=== PATIENT | male | born 1965 | race Caucasian/White ===

== ENCOUNTER 2023-12-25 18:11 | Emergency (ER) | payer BC, MEDICAID ==
[~2023-12-25] VITALS: Ht 175.3 cm; Wt 72.6 kg
--- NOTE | 2023-12-25 18:20 | NUR ---
LUCIANA DE102 "Binge drinking x7days Brother found him in the park c/o pain in chest area NSR"
--- NOTE | 2023-12-25 19:13 | NUR ---
Xray at bedside
[2023-12-25 19:15] LABS: BASOPHILS % (AUTO) 0.9 % (0.0-2.0); EOSINOPHILS % (AUTO) 0.9 % (0.0-6.0); HEMATOCRIT 38 % (39-51); HEMOGLOBIN 12.8 g/dL (13.5-17.5); LYMPHOCYTES # (AUTO) 1.3 K/uL (0.8-4.8); LYMPHOCYTES % (AUTO) 31.5 % (20.0-44.0); MEAN CORPUSCULAR HEMOGLOBIN 33 PG (26.0-33.0); MEAN CORPUSCULAR HGB CONC 34 g/dl (31.0-36.0); MEAN CORPUSCULAR VOLUME 97 fL (80-96); MONOCYTES # (AUTO) 0.5 K/uL (0.1-1.30); MONOCYTES % (AUTO) 12.6 % (2.0-12.0); NEUTROPHILS # (AUTO) 2.2 K/uL (1.8-8.9); NEUTROPHILS % (AUTO) 54.1 % (43.0-81.0); PLATELET COUNT (AUTO) 114 K/uL (150-450); RED BLOOD CELL COUNT(AUTO) 3.91 MIL/uL (4.5-6.0); WHITE BLOOD COUNT (AUTO) 4.1 K/uL (4.3-11.0)
[2023-12-25] MEDS ORDERED: FOLIC ACID 1 MG TABLET ONE (19:16)
[2023-12-25] MEDS ORDERED: THIAMINE HCL 100 MG TABLET ONE ×2 (19:17)
[2023-12-25 19:24] LABS: CALCIUM, SERUM 8.3 mg/dL (8.5-10.1); CARBON DIOXIDE 27 mmol/L (21-32); CHLORIDE 104 mmol/L (98-107); CREATININE 0.5 mg/dL (0.6-1.3); GLUCOSE 91 mg/dL (74-106); POTASSIUM 3.6 mmol/L (3.5-5.1); SODIUM SERUM 144 mmol/L (136-145); UREA NITROGEN, BLOOD 9 mg/dL (7-18)
[2023-12-25] MEDS: FOLIC ACID 1 MG TABLET PO ONE (19:35)
[2023-12-25 19:36] LABS: NT-PRO BNP 30 pg/mL (0-125)
[2023-12-25] MEDS: THIAMINE HCL 100 MG TABLET PO ONE ×2 (19:46)
[2023-12-25] MEDS ORDERED: CHLO25CA22 PO (20:36)
[2023-12-25] MEDS ORDERED: ZOLP5TAB2 PO (20:36)
[2023-12-25] MEDS ORDERED: THIA100T88 PO (20:36)
--- NOTE | 2023-12-25 20:51 | NUR ---
Patient discharged to home in stable condition. Written and verbal after care instructions given. Patient verbalizes understanding of instruction.
[2023-12-25 20:52] VITALS: BP 124/78; TEMP 98; O2SAT 99
== END 2023-12-25 20:52 | disposition home or self-care (01) ==
LOC: ER 18:14
DX: R07.89 Other chest pain (principal); G47.00 Insomnia, unspecified; F10.10 Alcohol abuse, uncomplicated; Z86.69 Personal history of other diseases of the nervous system and sense organs; Z60.2 Problems related to living alone; Y90.8 Blood alcohol level of 240 mg/100 ml or more
CPT/HCPCS: 36415; 71045-TC; 80048-TC; 83880; 84484-TC; 85025-TC; 98960; G0480